=== PATIENT | female | born 1985 | race Caucasian/White ===

== ENCOUNTER 2017-12-12 10:15 | Outpatient (CLI) | payer SELFPAY ==
[2017-12-12 10:21] VITALS: BMI 20.3
--- NOTE | 2017-12-12 14:20 | OB.TRI.NOTE ---
History of Present Illness Date of Service: 12/12/17 Was patient seen by the physician?: No Reason For Visit: ABD PAIN 26 WEEK Date of Service: 12/12/17 Home Medications Medication Instructions Recorded Suboxone 8 mg-2 mg Sl Film 12/12/17 Allergies No Known Allergies Allergy (Verified 12/12/17 10:54) - Pertinent Past Medical History Pertinent Past Medical History: Reportedly 26 wk along. ? anomaly and is to see MFM. ? Rh sensitized, hydropic fetus? On subutex and with last doese 3-4 d ago, sx and CC all c/w narcotic withdrawal. Impression/Plan Pt on Subutex and withdrawing from med. Last taken 4 d ago Left AMA without being seen Did not sign AMA slip Wanting narcotic to help with pain. Advised by RN that [facility] does not have Subutex. Needs to see her provider for this. Unable to given other narcotic d/t narcotic management program.
--- NOTE | 2017-12-12 14:23 | OB.TRI.HP_ITS ---
History of Present Illness Date of Service: 12/12/17 Was patient seen by the physician?: No Reason For Visit: ABD PAIN 26 WEEK Date of Service: 12/12/17 Home Medications Medication Instructions Recorded Suboxone 8 mg-2 mg Sl Film 12/12/17 Allergies No Known Allergies Allergy (Verified 12/12/17 10:54) - Pertinent Past Medical History Pertinent Past Medical History: Reportedly 26 wk along. ? anomaly and is to see MFM. ? Rh sensitized, hydropic fetus? On subutex and with last doese 3-4 d ago, sx and CC all c/w narcotic withdrawal. Impression/Plan Pt on Subutex and withdrawing from med. Last taken 4 d ago Left AMA without being seen Did not sign AMA slip Wanting narcotic to help with pain. Advised by RN that [facility] does not have Subutex. Needs to see her provider for this. Unable to given other narcotic d/t narcotic management program.
== END 2017-12-12 10:38 | disposition left against medical advice (07) ==
LOC: OBS 10:20 → WP 10:20
PROVIDERS: Visit Provider Obstetrics & Gynecology
DX: O99.322 Drug use complicating pregnancy, second trimester (principal); F11.90 Opioid use, unspecified, uncomplicated; O26.892 Other specified pregnancy related conditions, second trimester; R10.9 Unspecified abdominal pain; Z3A.26 26 weeks gestation of pregnancy; Z53.21 Procedure and treatment not carried out due to patient leaving prior to being seen by health care provider